=== PATIENT | male | born 1970 | race Caucasian/White ===

== ENCOUNTER 2017-08-07 05:49 | Emergency (ER) | payer OTHER ==
[~2017-08-07] VITALS: Ht 170.2 cm; Wt 142.9 kg
[2017-08-07] MEDS ORDERED: BENAZEPRIL-HCT1 EA11 PO (06:01)
[2017-08-07] MEDS ORDERED: OMEPRAZOLE 20 M20 MG PO (06:02)
[2017-08-07] MEDS ORDERED: LOPRESSOR25 PO (06:03)
[2017-08-07] MEDS ORDERED: CELEXA20 MG PO (06:03)
[2017-08-07] MEDS ORDERED: LIORESAL 10 MG10 MG PO (06:03)
[2017-08-07 06:26] LABS: ABSOLUTE EOSINOPHILS 0.2 thou/uL (0.0-0.7); ABSOLUTE LYMPHOCYTES 1.6 thou/uL (0.8-5.3); ABSOLUTE MONOCYTES 0.6 thou/uL (0.0-1.2); BASOPHILS 0.6 %; EOSINOPHILS 3.7 %; HEMATOCRIT 39.8 % (42.0-52.0); HEMOGLOBIN 13.8 gm/dL (14.0-18.0); LYMPHOCYTES 24.4 %; MCH 32.1 pg (26.0-34.0); MCHC 34.5 g/dL (28.0-37.0); MCV 92.9 fL (80.0-100.0); MONOCYTES 9.1 %; MPV 7.3 fl. (7.2-11.1); NUCLEATED RBCS 0 /100WBC; PLATELET COUNT* 239 thou/uL (150-400); POLYS 62.2 %; RBC 4.29 mil/uL (4.50-6.00); RDW-CV 15.9 % (10.5-14.5); WBC 6.4 thou/uL (4.0-11.0)
[2017-08-07 06:29] LABS: CALCIUM 8.5 mg/dL (8.5-10.1); CREATININE 1.2 mg/dL (0.6-1.3); POTASSIUM 4.1 mmol/L (3.5-5.1)
[2017-08-07 06:53] LABS: URINE BILIRUBIN NEGATIVE (Negative); URINE BLOOD NEGATIVE (Negative); URINE CLARITY CLEAR; URINE COLOR YELLOW; URINE GLUCOSE-RANDOM NEGATIVE (Negative); URINE KETONES NEGATIVE (Negative); URINE LEUKOCYTES-REFLEX NEGATIVE (Negative); URINE NITRITE-REFLEX NEGATIVE (Negative); URINE PROTEIN NEGATIVE (Negative); URINE SPECIFIC GRAVITY 1.025 (1.005-1.030); URINE UROBILINOGEN 0.2 E.U./dl (0.2-1.0)
[2017-08-07] MEDS ORDERED: FLOMAX0.4 MG PO (07:27)
[2017-08-07] MEDS ORDERED: OXYCODONE HCL 55 MG PO (07:27)
[2017-08-07 07:46] VITALS: BP 171/101
== END 2017-08-07 07:49 | disposition home or self-care (01) ==
LOC: M.ERS 05:49
PROVIDERS: Emergency Medicine
DX: N20.0 Calculus of kidney (principal); I10 Essential (primary) hypertension; K21.9 Gastro-esophageal reflux disease without esophagitis; G89.29 Other chronic pain; M54.9 Dorsalgia, unspecified; Z87.442 Personal history of urinary calculi; Z88.6 Allergy status to analgesic agent